=== PATIENT | female | born 1945 | race Caucasian/White ===

== ENCOUNTER 2016-08-26 14:17 | Inpatient (IN) | payer OTHER, MEDICARE ==
[~2016-08-26] VITALS: Ht 162.6 cm; Wt 154.2 kg
[~2016-08-26 14:17] MED LIST: APAP325 MG PO; ASPI-COR81 M1 PO; AUGMENTIN 875875 MG PO; CALAN PO; KLOR-CON20 MEQ PO; LASIX80 MG PO; LISINOPRIL10 MG PO; LISINOPRIL40 MG PO; MOTRIN 400MG (400 MG PO; PEDI-DRI 20Z60 GM TOP; PERCOCET 325 MG1 TA2 PO; SIMVASTATIN40 MG PO; TYLENOL #31 TAB PO; TYLENOL ARTHRI650 MG PO
--- NOTE | 2016-08-26 14:20 | NUR ---
BIBA FROM HOME FOR RIGHT HIP PAIN, BILATERAL LEG PAIN, WEEPING EDEMA FROM LLE, DECREASED ABILITY TO AMBULATE AROUND HOUSE. UPON ARRIVAL PT EXERTIONALLY SOB, DIFFICULTY TRANSFERRING FROM EMS STRETCHER TO ED STRETCHER BUT ABLE TO PERFORM TASK WITH ASSIST X2. PT ON 3LNC AT BASELINE FOR COPD
--- NOTE | 2016-08-26 14:21 | ED UPPER/LOWER EXTREMITY COMPL ---
History of Present Illness General Chief Complaint: Lower Extremity Problems Stated Complaint: BIBA FOR R HIP/KNEE/THIGH PAIN CHRONIC Source: patient, old records, EMS Exam Limitations: no limitations Vital Signs & Intake/Output Vital Signs & Intake/Output Vital Signs Date Time Temp Pulse Resp B/P Pulse O2 O2 Flow FiO2 Ox Delivery Rate 08/26 1818 97.2 61 18 125/65 98 Nasal 3.0L Cannula 08/26 1530 16 95 Nasal 3.0L Cannula 08/26 1430 94 Nasal 3.0L Cannula 08/26 1430 98.2 66 16 118/56 94 Nasal 3.0L Cannula Allergies Coded Allergies: Sulfa (Sulfonamide Antibiotics) (UNKNOWN 08/26/16) Reconcile Medications Acetaminophen With Codeine (Acetaminophen-Cod #3 Tablet) 300 MG-30 MG TABLET 1 TAB PO 0400 PAIN (Reported) Acetaminophen With Codeine (Acetaminophen-Cod #3 Tablet) 300 MG-30 MG TABLET 0.5 TAB PO BID PAIN (Reported) Aspirin (Aspi-Cor) 81 MG CTB 1 TAB PO Q72 HEART HEALTH (Reported) Diclofenac Sodium 75 MG TABLET.DR 1 TAB PO BID PAIN (Reported) Furosemide (Lasix) 80 MG TABLET 1 TAB PO DAILY CHF (Reported) Ibuprofen 400 MG TABLET 2 TAB PO DAILY PAIN (Reported) Lisinopril 10 MG TABLET 10 MG PO BID HYPERTENSION Morphine Sulfate 15 MG TABLET 1 TAB PO BIDP PRN PAIN (Reported) Potassium Chloride (Klor-Con) 20 MEQ PDS 1 TAB PO Q48 SUPPLEMENT (Reported) Simvastatin 40 MG TABLET 1 TAB PO QPM CHOLESTEROL (Reported) Verapamil (Calan 80 MG Tablet) 80 MG TABLET 1 TAB PO TID BLOOD PRESSURE ( Reported) Triage Nurses Notes Reviewed? yes Onset: Gradual Duration: week(s):, constant, getting worse Timing: recent history Severity: moderate Severity Numbers: 8 Pain/Injury Location: Right: Hip. Bilateral: Leg. Method of Injury: unknown Modifying Factors: Worsens With: movement. Associated Symptoms: none HPI: 71 year old female with history of hypertension, hyperlipidemia, CHF, bilateral knee arthritis, depression, obstructive sleep apnea morbidly obese presents brought in by ambulance complaining of right hip and right leg chronic aching throbbing pain that has been getting progressively worse over the past several weeks having difficulty with ambulation around her house. The patient has been seeming home physical therapy visiting nursing care without improvement and the patient has had near falls over the past 1 week. She is on several narcotic pain medication which she's been on without improvement in her symptoms. She states that her legs are chronically swollen, and weeping. She denies any rashes to her skin no fever no chills. She denies any chest pain shortness of breath dizziness lightheadedness at this time. No bowel pain nausea vomiting or diarrhea Family States that patient is unable to care for self anymore longer secondary to her pain (MINI MILLAN) Past History Travel History Traveled to [place] past 21 day No Medical History Any Pertinent Medical History? see below for history Cardiovascular: CHF, hypertension, hyperlipidemia Musculoskeletal: chronic leg pain Other Medical Hx: Cellulitis History of MRSA: No History of VRE: No History of CDIFF: No Pneumonia Vaccine: 02/19/14 Influenza Vaccine: 06/10/14 Surgical History Surgical History: non-contributory Psychosocial History Who do you live with Patient/Self Services at Home Nursing What is your primary language Stateless Family History Family History, If Any: BROTHER FH: diabetes mellitus MOTHER FH: diabetes mellitus Hx Contributory? No (MINI MILLAN) Review of Systems Review of Systems Constitutional: Reports: see HPI. All Other Systems: Reviewed and Negative Comments Review of systems: See HPI, All other systems negative. Constitutional, no chills no fever, no malaise HEENT: No visual changes no sore throat no congestion, no ear pain Cardiovascular: No chest pain , no palpitation Skin, no jaundice no rashes, no change in skin Respiratory: No dyspnea no cough no sputum GI: No nausea no vomiting, no diarrhea, no bloating/constipation : No dysuria No hematuria, no frequency, Muscle skeletal: see hpi Neurologic: No numbness no confusion, no headache Psych: No stress. Heme/endocrine: No bruising no bleeding Immunology: No lymphadenopathy (MINI MILLAN) Physical Exam Physical Exam General Appearance: well developed/nourished, alert Comments: Well-developed well-nourished person in no acute distress HEENT: Normal EENT exam; PERRL, EOMI, HEAD is atraumatic. moist mucous membranes. Neck: Supple,, normal range of motion without pain or tenderness Back: Nontender, no CVA tenderness. Full range of motion Cardiovascular: Regular rate and rhythms no murmurs rubs Respiratory: No respiratory distress. Patient speaking in full complete sentences. Breath sounds clear to auscultation bilaterally: NO W/R/R Abdomen: Soft, nontender nondistended Normal bowel sounds. No rebound/guarding upper Extremity: No edema, full range of motion of extremities, normal and equal pulses bilaterally, 5 out of 5 strength noted to bilateral upper extremities Hip/Pelvis: Atraumatic/Stable. FROM. No pain with pelvic compression Knee: Atraumatic/stable. FROM. No joint swelling, no effusion. No laxity. Negative josette/anterior drawer test. No pain with ROM Leg: Atraumatic. Bilateral pitting edema, legs are hyperpigmented, 5 out of 5 strength in the lower extremity, normal dorsiflexion of great toe bilaterally, gross sensation is intact Ankle/Foot: Atraumatic/stable. Skin intact. FROM. No swelling, no effusion. No laxity on exam Pulses: Normal/equal DP/PT pulses bilaterally. Brisk cap refill Neuro: Alert oriented x3, motor sensory normal, cranial nerves II through XII grossly intact. There were no obvious focal neurologic abnormalities. Skin: No appreciable rash on exposed skin, skin is warm and dry. Psych: Mood and affect is normal, memory and judgment is normal. (STACEY CASTILLO,MINI) Progress Differential Diagnosis: arterial insufficiency, cellulitis, CHF, compartment syndrome, contusion, DVT, fracture, gout, sprain, tendon injury Plan of Care: Orders Procedure Date/time Status Heart Healthy Diet 08/27 B Active CBC WITHOUT DIFFERENTIAL 08/27 0600 Active BASIC ELECTROLYTES PLUS BUN&CR 08/27 0600 Active Regular Diet 08/26 D Complete PT Evaluate & Treat 08/26 1808 Active Pathway - chart 08/26 1808 Active House Staff 08/26 1808 Active SOCIAL WORK CONSULT 08/26 1808 Active CASE MANAGEMENT CONSULT 08/26 1808 Active Code Status 08/26 1801 Active Patient Data 08/26 1707 Active Saline Lock 08/26 1641 Active Misc Message 08/26 1641 Active ED Holding Orders 08/26 1641 Active Vital Signs 08/26 1641 Active Activity/Ambulation 08/26 1641 Active Code Status 08/26 1641 Complete Admit to inpatient 08/26 1638 Active Intake & Output 08/26 1605 Active B-TYPE NATRIURETIC PEP (BNP) 08/26 1543 Complete COMPREHENSIVE METABOLIC PANEL 08/26 1504 Complete CBC WITHOUT DIFFERENTIAL 08/26 1504 Complete VTE Mechanical Prophylaxis 08/26 UNK Active Current Medications Sig/Dior Start time Last Medication Dose Stop Time Status Admin Heparin Sodium 5,000 UNIT Q8 08/26 2200 AC (Porcine) Laboratory Tests 08/26/16 1543: Anion Gap 13, Estimated GFR 34 L, BUN/Creatinine Ratio 30.7 H, Glucose 93, Calcium 9.2, Total Bilirubin 0.5, AST 14, ALT 17, Alkaline Phosphatase 150 H, Dle-P-Orqabjsifrt Pept 879 H, Total Protein 7.4, Albumin 4.1, Globulin 3.3, Albumin/Globulin Ratio 1.2, CBC w Diff NO MAN DIFF REQ, RBC 5.07, MCV 64.5 L, MCH 19.8 L, RDW 21.8 H, MPV 8.6, Gran % 78.5 H, Lymphocytes % 11.2 L, Monocytes % 8.0, Eosinophils % 1.8, Basophils % 0.5, Absolute Granulocytes 8.3 H, Absolute Lymphocytes 1.2, Absolute Monocytes 0.8 H, Absolute Eosinophils 0.2 , Absolute Basophils 0.1, PUBS MCHC 30.7 L 08/26/16 1505: Tea-V-Qjzipgfdsuc Pept Cancelled Labs ordered old records reviewed case discussed with Dr. Alejandre patient is declining anything for pain at this time (STACEY CASTILLO,MINI) Diagnostic Imaging: Viewed by Me: Radiology Read. Discussed w/RAD: Radiology Read. Radiology Impression: PATIENT: NICOLAS HERNANDEZ PRESENT AGE: 71 PATIENT ACCOUNT NO: [id number] : 47 LOCATION: [facility] ORDERING PHYSICIAN: MINI CASTILLO SERVICE DATE: 08/26/16 EXAM TYPE: RAD - XRY- AP PELVIS; XRY-KNEE COMPLETE RIGHT EXAMINATION: AP PELVIS, RIGHT KNEE SERIES CLINICAL INFORMATION: Right hip pain, right knee pain COMPARISON: None. AP pelvis: 2 frontal radiographs of the pelvis are provided for review. Images are significantly limited by patient body habitus. The ilioischial and iliopectineal lines appear maintained. There is severe joint space narrowing of the right hip with associated subchondral sclerosis. There is moderate to severe narrowing of the joint space of left hip with associated sclerosis of acetabular roof. There is no definite fracture. A significant amount of stool proximal over the sacrum completely obscuring evaluation. The sacroiliac joints appear grossly symmetric. Degenerative changes are noted of the lower lumbar spine, partially imaged. Right knee: 4 views of the right knee are provided for review, 5 images. There is significant narrowing of the medial compartment with subchondral sclerosis and marginal osteophytes present. There is mild narrowing of the lateral compartment of the knee with marginal osteophytes noted prominently along the lateral tibial plateau. Unfortunately, the distal femur is partially obscured on the lateral radiograph. The presence of an effusion cannot be assessed. There are prominent superior and inferior patellar enthesophytes. There is no definite fracture or subluxation. IMPRESSION: 1. Significantly limited evaluation secondary to patient body habitus. 2. Severe right hip osteoarthritis. 3. Moderately severe left hip osteoarthritis. 4. No definite fracture identified on the pelvic radiographs within the limitation of the examination which is significant. 5. Severe osteoarthritis involving the medial compartment of the right knee. 6. Mild osteoarthritic changes involving the lateral compartment of the right knee. 7. Moderate osteoarthritis involving the patellofemoral compartment. The presence of effusion cannot be assessed on these films. DICTATED BY: FRANCY MORSE MD DATE/TIME DICTATED:08/26/161699 DRESSMAKER OR TAILOR :JOHNNA DATE/TIME TRANSCRIBED:08/26/161699 CONFIDENTIAL, DO NOT COPY WITHOUT APPROPRIATE AUTHORIZATION. <Electronically signed in Other Vendor System> SIGNED BY: FRANCY MORSE MD 08/26/161708 (MINI MILLAN) Departure Departure Time of Disposition: 1638 Disposition: STILL A PATIENT Condition: Stable Clinical Impression Primary Impression: Intractable pain Secondary Impressions: Chronic leg pain, Gait instability Referrals: Anai MARSH MD (PCP/Family) Departure Forms: Customer Survey General Discharge Information Admission Note Spoke With: JERRY CHOE,BETH Documentation of Exam: Documentation of any treatments & extenuating circumstances including Concerns Regarding Discharge (functional status, medication knowledge or non-compliance, living conditions, etc.) that warrant an admission rather than observation: WILL REQUIRE PT CONSULT, TREND LABS, MEDICATION ADJUSTMENT OF PAIN MEDICAITONS, PATIENT UNABLE TO CARE FOR SELF AT HOME, UNABLE TO AMBULATE AT BASELINE HERE IN ER SAFELY- PT IS A FALL RISK. PREMATURE DISCHARGE WOULD BE MEDICALLY HARMFUL (MINI MILLAN) PA/SHOEMAKER CUSTOM Co-Sign Statement Statement: ED Attending supervision documentation- [X] I saw and evaluated the patient. I have also reviewed all the pertinent lab results and diagnostic results. I agree with the findings and the plan of care as documented in the PA's/SHOEMAKER CUSTOM's documentation. [X] I have reviewed the ED Record and agree with the PA's/SHOEMAKER CUSTOM's documentation. [] Additions or exceptions (if any) to the PAs/SHOEMAKER CUSTOM's note and plan are summarized below: [] (DANYELL CHOE,SOURAV Singh)
[2016-08-26] MEDS ORDERED: DICLOFENAC SODI75 M2 PO (14:41)
[2016-08-26] MEDS ORDERED: MORPHINE SULFAT15 M4 PO (14:42)
[2016-08-26] MEDS ORDERED: ACETAMINOPHEN-1 EAC3 PO ×2 (14:44→14:45)
--- NOTE | 2016-08-26 15:41 | NUR ---
PT AMBULATORY TO AND FROM RECLINING CHAIR TO RM 10 BATHROOM WITH ROLLING WALKER. PT AMBULATES SLOW AND IS DIFFICULT TO GET OUT OF CHAIR BUT IS ABLE TO INDEPENDENTLY
--- NOTE | 2016-08-26 15:46 | NUR ---
BLOOD DRAWN AND SENT TO LAB. LAV,SST,BLUE
[2016-08-26 15:51] LABS: ABSOLUTE BASOPHIL COUNT 0.1 /CUMM (0.0-0.2); ABSOLUTE EOSINOPHIL COUNT 0.2 /CUMM (0.0-0.7); ABSOLUTE GRANULOCYTE CT 8.3 /CUMM (1.4-6.5); ABSOLUTE LYMPH COUNT 1.2 /CUMM (1.2-3.4); ABSOLUTE MONOCYTE COUNT 0.8 /CUMM (0.10-0.60); BASOPHIL % 0.5 % (0.0-2.0); EOSINOPHIL % 1.8 % (0-5); GRANULOCYTE % 78.5 % (42.2-75.2); HEMATOCRIT 32.7 % (37-47); MEAN CORPUSCULAR HGB 19.8 PG (27.0-31.0); MEAN CORPUSCULAR HGB CONC 30.7 G/DL (33.0-37.0); PLATELET COUNT 227 /CUMM (130-400); RBC DISTRIBUTION WIDTH 21.8 % (11.5-14.5); RED BLOOD CELL CT 5.07 /CUMM (4.20-5.40); WHITE BLOOD CELL COUNT 10.6 /CUMM (4.8-10.8)
[2016-08-26 16:23] LABS: MEAN CORPUSCULAR VOLUME 64.5 FL (81.0-99.0); MEAN PLATELET VOLUME 8.6 FL (7.4-10.4)
--- NOTE | 2016-08-26 16:33 | NUR ---
PT RETURN FROM RADIOLOGY
--- NOTE | 2016-08-26 16:36 | NUR ---
JONATHAN IBARRA AT BEDSIDE TO DISCUSS POC. ADMISSION ANTICIPATED
--- NOTE | 2016-08-26 16:53 | NUR ---
PT AMBULATED TO BATHROOM WITH MINIMAL ASSISTANCE
--- NOTE | 2016-08-26 17:09 | RADIOLOGY REPORT ---
EXAMINATION: AP PELVIS, RIGHT KNEE SERIES CLINICAL INFORMATION: Right hip pain, right knee pain COMPARISON: None. AP pelvis: 2 frontal radiographs of the pelvis are provided for review. Images are significantly limited by patient body habitus. The ilioischial and iliopectineal lines appear maintained. There is severe joint space narrowing of the right hip with associated subchondral sclerosis. There is moderate to severe narrowing of the joint space of left hip with associated sclerosis of acetabular roof. There is no definite fracture. A significant amount of stool proximal over the sacrum completely obscuring evaluation. The sacroiliac joints appear grossly symmetric. Degenerative changes are noted of the lower lumbar spine, partially imaged. Right knee: 4 views of the right knee are provided for review, 5 images. There is significant narrowing of the medial compartment with subchondral sclerosis and marginal osteophytes present. There is mild narrowing of the lateral compartment of the knee with marginal osteophytes noted prominently along the lateral tibial plateau. Unfortunately, the distal femur is partially obscured on the lateral radiograph. The presence of an effusion cannot be assessed. There are prominent superior and inferior patellar enthesophytes. There is no definite fracture or subluxation. IMPRESSION: 1. Significantly limited evaluation secondary to patient body habitus. 2. Severe right hip osteoarthritis. 3. Moderately severe left hip osteoarthritis. 4. No definite fracture identified on the pelvic radiographs within the limitation of the examination which is significant. 5. Severe osteoarthritis involving the medial compartment of the right knee. 6. Mild osteoarthritic changes involving the lateral compartment of the right knee. 7. Moderate osteoarthritis involving the patellofemoral compartment. The presence of effusion cannot be assessed on these films.
--- NOTE | 2016-08-26 17:30 | NUR ---
PT STATES SHE DOES NOT FEEL LIKE SHE IS ABLE TO GET UP AND AMBULATE AT THIS TIME DUE TO PAIN AND LOWER EXTREMITY WEAKNESS
--- NOTE | 2016-08-26 18:20 | NUR ---
PT GOING TO ROOM 209-1.
--- NOTE | 2016-08-26 18:27 | History & Physical ---
AYANA ROJO 08/26/16 1827: General Information and HPI MD Statement: I have seen and personally examined NICOLAS HERNANDEZ and documented this H&P. The patient is a 71 year old F who presented with a patient stated chief complaint of right hip knee and thigh pain. Source of Information: patient History of Present Illness: Ms Hernandez is a 71-year-old woman who was known to be in her usual state of health until a few weeks ago. She has a past medical history of CHF, bilateral knee osteoarthritis, obstructive sleep apnea, COPD (3 L home oxygen), hypertension. She was brought to [facility] with a chief concern of worsening right hip knee and thigh pain in the last few days. As per the patient, she has had chronic pain in her right knee and thigh for which she has been on pain medications (prescribed at pain clinic) and home physical therapy. Pain, worsening in the last few weeks, severity 10/10, with no radiation, located in right hip knee and thigh, limitation in activity, unable to climb stairs, relieved upon taking pain medications at a higher dose only. Also is concerned about increasing leg swelling bilaterally, despite being on a diuretic; no associated redness, tenderness, drainage or open wounds. Does not report any change in functional status (shortness of breath while walking), doing daily chores. No fever, cough, orthopnea, chest pain, palpitations reported. No melena or bleeding per rectum. Sees Dr Marsh ( PCP ), Ed Bhandari MD (urinalysis technician), Dr. Baptiste ( waitstaff captain). Former smoker smoked approximately 50 pack years, quit more than 20 years ago. He reports limited activity, sleeps on a recliner. Allergies/Medications Allergies: Coded Allergies: Sulfa (Sulfonamide Antibiotics) (UNKNOWN 08/26/16) Home Med list Acetaminophen With Codeine (Acetaminophen-Cod #3 Tablet) 300 MG-30 MG TABLET 1 TAB PO 0400 PAIN (Reported) Acetaminophen With Codeine (Acetaminophen-Cod #3 Tablet) 300 MG-30 MG TABLET 0.5 TAB PO BID PAIN (Reported) Aspirin (Aspi-Cor) 81 MG CTB 1 TAB PO Q72 HEART HEALTH (Reported) Diclofenac Sodium 75 MG TABLET. 1 TAB PO BID PAIN (Reported) Furosemide (Lasix) 80 MG TABLET 1 TAB PO DAILY CHF (Reported) Ibuprofen 400 MG TABLET 2 TAB PO DAILY PAIN (Reported) Lisinopril 10 MG TABLET 10 MG PO BID HYPERTENSION Morphine Sulfate 15 MG TABLET 1 TAB PO BIDP PRN PAIN (Reported) Potassium Chloride (Klor-Con) 20 MEQ PDS 1 TAB PO Q48 SUPPLEMENT (Reported) Simvastatin 40 MG TABLET 1 TAB PO QPM CHOLESTEROL (Reported) Verapamil (Calan 80 MG Tablet) 80 MG TABLET 1 TAB PO TID BLOOD PRESSURE ( Reported) Past History Travel History Traveled to [place] past 21 day No Medical History Neurological: NONE EENT: NONE Cardiovascular: CHF, hypertension, hyperlipidemia Respiratory: emphysema Gastrointestinal: NONE Hepatic: NONE Renal: NONE Musculoskeletal: chronic leg pain Psychiatric: NONE Endocrine: NONE Blood Disorders: NONE Cancer(s): NONE Other Medical Hx: Cellulitis History of MRSA: No History of VRE: No History of CDIFF: No Pneumonia Vaccine: 02/19/14 Influenza Vaccine: 06/10/14 Surgical History Surgical History: non-contributory Past Family/Social History Family History Relations & Conditions if any BROTHER FH: diabetes mellitus MOTHER FH: diabetes mellitus Psychosocial History Services at Home: Nursing ETOH Use: denies use Illicit Drug Use: denies illicit drug use Review of Systems Review of Systems Constitutional: Denies: chills, fever, malaise. EENTM: Denies: visual changes. Cardiovascular: Denies: chest pain, edema. Respiratory: Denies: cough, orthopnea, short of breath. GI: Denies: nausea. Genitourinary: Denies: dysuria. Musculoskeletal: Denies: joint pain. Skin: Denies: change in skin color. Neurological/Psychological: Denies: anxiety, headache. Exam & Diagnostic Data Last 24 Hrs of Vital Signs/I&O Vital Signs Date Time Temp Pulse Resp B/P Pulse O2 O2 Flow FiO2 Ox Delivery Rate 08/26 2235 76 172/82 08/26 2109 98.2 76 20 172/82 91 08/26 2037 68 20 136/64 95 Nasal 3.0L Cannula 08/26 1818 97.2 61 18 125/65 98 Nasal 3.0L Cannula 08/26 1530 16 95 Nasal 3.0L Cannula 08/26 1430 94 Nasal 3.0L Cannula 08/26 1430 98.2 66 16 118/56 94 Nasal 3.0L Cannula Intake & Output 08/26 1600 01/21 0800 08/26 0000 Intake Total Output Total Balance Patient 324 lb Weight Physical Exam General Appearance Alert, Oriented X3, Cooperative, No Acute Distress Skin No Breakdown HEENT PERRLA, EOMI Neck No JVD, No thryomegaly Lymphatic Cervical nl Cardiovascular Regular Rate, Normal S1, Normal S2 Lungs Normal Air Movement Abdomen Normal Bowel Sounds, Soft, No Tenderness Neurological Normal Speech, Strength at 5/5 X4 Ext, Normal Tone, Sensation Intact, Cranial Nerves 3-12 NL, Reflexes 2+ Extremities No Cyanosis, tenderness and edema bilateral lower extremities extending from ankle up to the dav[place]son area. Slightly erythematous, but no tenderness or any signs of infection. Vascular Pulses Symmetrical Assessment/Plan Assessment: She is an older lady with a past medical history of bilateral knee arthritis, CHF, COPD is being evaluated for worsening right hip, knee and thigh pain. At the time of admission, temperature 98.2, pulse rate 76, respiratory rate 20, blood pressure 172/82, pulse ox 91-95 on 3 L oxygen. Lab findings indicated WBC 10.6, hemoglobin 10.1 (baseline 10.7), hematocrit 32.7, MCV 64.5 (very low), platelets 227. Normal electrolytes sodium 142, potassium 4.3, bicarbonate 27, BUN 46, serum creatinine 1.5 (baseline 1.2- likely due to chronic kidney disease or increased muscle mass). Alkaline phosphatase 150 (slightly elevated), proBNP 879, radiological findings indicated right hip osteoarthritis, osteoarthritis of right knee. Admission diagnosis: #1 osteoarthritis Below is the problem list and plan: #1 right, hip, knee pain-likely due to osteoarthritis. Pain management with by mouth hydromorphone, MSIR and Tylenol. Continue to monitor kidney function and when allowed, start an anti-inflammatory. Warm or cool compress, alternate pain control. Physical therapy evaluation. Occupational therapy evaluation. Leg elevation for bilateral leg swellings. #2 anemia-likely anemia of chronic disease. Low MCV. Check iron, ferritin, TIBC. Does not have any history of thalassemia. Check guaiac. #2 hypertension-continue to monitor blood pressure while in the hospital. Continue lisinopril and verapamil. #3 history of CHF-continue 80 mg by mouth daily. #4 DVT prophylaxis-heparin subcutaneous. As Ranked By This Provider Problem List: 1. Chronic leg pain 2. Intractable pain Core Measures/Miscellaneous Acute Coronary Syndrome ACS Diagnosis: No Cerebrovascular Accident CVA/TIA Diagnosis: No Congestive Heart Failure CHF Diagnosis: No Venous Thromboembolism VTE Risk Factors: Acute medical illness, Age > 40 VTE Prophylaxis Ordered Inpt: Pharm- Heparin No Mech VTE prophylaxis d/t: No contraindications No VTE Pharm Prophylaxis d/t: No contraindications VTE Diagnosis: No VTE Type: NONE VTE Confirmed by (Test): NONE Severe Sepsis Severe Sepsis Present: No Septic Shock Septic Shock Present: No Miscellaneous Documentation Attending Case Discussed With: EBENEZER PETTY MD Primary Care Physician: Anai MARSH MD Patient sees these Specialists Dr. Baptiste Level of Patient Care: General Medicine EBENEZER PETTY 08/26/16 2356: Attending MD Review Statement Attending Statement Attending MD Statement: examined this patient, discuss w/resident/PA/NATUROPATHIC ONCOLOGY PROVIDER, agreed w/resident/PA/NATUROPATHIC ONCOLOGY PROVIDER, reviewed EMR data (avail), reviewed images, amended to note Attending Assessment/Plan: CC : right Knee and hip pain PMH: HTN, HLD, HFpEF, COPD on 3 L O2, morbid obesity, OA, ?DANGELO Patient has chronic pain bilateral hips, knees, more in right side compared to the left. Patient came with acute worsening of pain in left knee and hip, unable to ambulate, unsteady gait. According to family, patient is unable to take care of herself because of the pain. Vitals: Afebrile, pulse 66, RR 20, blood pressure in acceptable range, saturating 95% on 3 L. On exam: A O 3, no acute distress, morbidly obese, neck supple, no lymphadenopathy, mucosa moist CVS: S1-S2, RRR. RS: Markedly decreased air entry bilaterally, no obvious wheezing. Abdomen: Obese, NT, ND, bowel sounds present, no obvious rashes. No focal neurological deficit. Examination of joint is limited because patient is in pain and not cooperative Labs: Hemoglobin 10.1, MCV 64. BUN 46, creatinine 1.5, proBNP 879 otherwise BMP and LFT unremarkable. X-ray pelvis x-ray right knee: Significantly limited evaluation secondary to patient body habitus. Severe right hip osteoarthritis. Moderately severe left hip osteoarthritis. No definite fracture identified on the pelvic radiographs within the limitation of the examination which is significant. Severe osteoarthritis involving the medial compartment of the right knee. Mild osteoarthritic changes involving the lateral compartment of the right knee. Moderate osteoarthritis involving the patellofemoral compartment. The presence of effusion cannot be assessed on these films. A&P: #1 intractable pain secondary to severe osteoarthritis of right hip and knee joint: Patient is currently on diclofenac, ibuprofen, morphine at home. Given her CKD, D/c either ibuprofen or diclofenac. Adequate pain control with PO hydromorphone for severe pain, hydrocodone or MS Contin for moderate pain and Tylenol for mild pain. OT PT evaluation for unsteady gait #2 patient has microcytic anemia which appears to be chronic, review of previous labs does not show any workup for anemia, patient denies any chronic blood loss. Patient has CKD which may be contributing, obtain iron studies, may require outpatient workup for anemia. #3 CKD : Creatinine is 1.5, previous value for comparison 1.2 in 2015, given patient's chronic NSAID use, history of heart failure with by mouth Lasix use patient may be developing CKD. #4 HTN, HLD, HFpEF, COPD: Continue her home medications of lisinopril, simvastatin, verapamil, Lasix, when necessary nebulization, O2 by MN. #5 OT PT evaluation, assessment for short-term rehabilitation placement #6 hepatin for DVT prophylaxis MAX CHOE,[place] 08/27/16 0016: Resident Review Statement Resident Statement: examined this patient, discussed with chief of internal medicine, agreed with chief of internal medicine Other Findings: Ms Hernandez is a morbidly obese 71 YO F with a PMH COPD on 3L home O2, CHF, bilateral knee and hip osteoarthritis, obstructive sleep apnea not on CPAP, hypertension, hx of recurrenet cellulitis and chronic lymphedema of her bilateral LE who presents with pain in her hips, knee and thighs with increased difficulty ambulating around her home with her walker. Pain has been worsening in the past months, she is unable to care for herself due to the pain. She has home PT but had to stop getting PT because of her pain. She denies any recent falls, fever, cough, shortness of breath, N/V/D or abdominal pain. She says she has to sleep in a recliner due to her hip pain. She has not followed with the different consultants she sees because she is unable to go down the steps of her house to make it to her clinic appointments (she has upcoming appointments with her pulm-Dr. Bhandari and waitstaff captain-Dr. Baptiste). She requests to see a solutions sales consultant to trim her nails while in hospital. She endorses opiod-related constipation for which she takes colace and prune juice. Her pain medications are tyelenol with codeine, morphine po, diclofenac and ibuprofen. She expressed that she would only go to [facility] if she has to go to rehab at all. Assessment Intractable Pain from OA Plan Admit to She needs PT and STR placement Adequate pain Mgt-Tylenol/Morphine/Dilaudid Podiatry consult in am to trim her nails Hold Diclofenac and Ibuprofen; Can resume one of them on discharge but avoid discharge on both to minimize SE of NSAIDS Resume her impt home medications Continue O2 supplementation at her baseline rate as needed She takes Lisinopril 10mg BID-Please confirm this dose with her PCP/ [employer] Heart Healthy Diet DVT ppx with sq heparin DNR/DNI
--- NOTE | 2016-08-26 18:54 | NUR ---
PT REFUSING IV AT THIS TIME. STATES SHE IS VERY UNHAPPY THAT SHE IS NOT IN A PRIVATE ROOM. "THIS IS GOING TO BE A PROBLEM."
--- NOTE | 2016-08-26 20:08 | NUR ---
PT GOING TO ROOM 203.
[2016-08-26 21:10] VITALS: BP 172/82
--- NOTE | 2016-08-26 22:00 | NUR ---
RECEIVED PT FROM ED THIS PM. PT ANXIOUS UPON ARRIVAL WITH INCREASED BLOOD PRESSURE, ALERT AND ORIENTED TIMES 4. VSS, AFEBRILE. ASSISTED TO LILIBETH CHAIR. PT REFUSES BED. RA, LUNG SOUNDS CLEAR. ABDOMEN SOFT, BILAT LOWER EXTREMITY EDEMA LEFT GREATER THAN RIGHT. BILAT LOWER EXTREMITIES SCALEY, DRY. REFUSED ELEVATION OF LEGS. REFUSED IV ACCESS. PAIN 7/10, GOOD EFFECT WITH PO DILAUDID. NO HISTORY OF FALLS, ABLE TO STAND WITH ROLLING WALKER. ASSIT OF ONE TO BSC. ORIENED TO 2NB, CALL RUSHING WITHIN REACH
[2016-08-26 23:53] VITALS: BP 134/64
--- NOTE | 2016-08-26 23:58 | Admission Certification ---
Admission Certification Certification Statement - As attending physician, I certify that at the time of - admission, based on clinical presentation, severity of - symptoms, need for further diagnostic testing and - therapeutic interventions, and risk of adverse outcomes - without in-hospital treatment, in my clinical assessment, - this patient requires an acute hospital stay for a minimum - of two nights or longer. I have also considered psychsocial - factors such as support system, advanced age, financial - issues, cognitive issues, and failed out-patient treatments, - past re-admission history, safety of patient, and lack of - compliance as applicable. Specific rationale supporting this admission is: Intractable pain, gait instability
--- NOTE | 2016-08-27 06:47 | PN- Housestaff ---
AYANA ROJO 08/27/16 0647: Subjective Follow-up For: 1.right hip pain Subjective: Pt was comfortable this am. She did not have any SOB, chest pain. Pain is adequately controlled with current regimen. Review of Systems Constitutional: Reports: see HPI. Objective Last 24 Hrs of Vital Signs/I&O Vital Signs Date Time Temp Pulse Resp B/P Pulse O2 O2 Flow FiO2 Ox Delivery Rate 08/26 2353 98.3 62 19 134/64 97 Nasal 3.0L Cannula 08/26 2235 76 172/82 08/26 2110 98.2 76 20 172/82 91 08/26 2037 68 20 136/64 95 Nasal 3.0L Cannula 08/26 1818 97.2 61 18 125/65 98 Nasal 3.0L Cannula 08/26 1530 16 95 Nasal 3.0L Cannula 08/26 1430 94 Nasal 3.0L Cannula 08/26 1430 98.2 66 16 118/56 94 Nasal 3.0L Cannula Intake & Output 08/27 0800 08/27 0000 08/26 1600 Intake Total 300 Output Total 700 Balance -400 Intake, Oral 300 Output, Urine 700 Patient 340 lb 324 lb Weight Physical Exam General Appearance: No Acute Distress Other Physical Findings: General Exam: AAOx3, No acute distress, Skin: No rashes, no breakdown HEENT: PERRLA, EOMI Neck: Supple, No JVD No cervical lymphadenopathy CVS: Reg Rate, Normal S1,S2, No MGR Resp: Normal air entry, no ronchi/rales Abdomen: Soft, no tenderness, Normal Bowel Sounds, folry catheter in place. good urine output Neuro: Normal Speech, Strength 5/5 b/l x 4 extremities, Sensation intact, CN III -XII NL, Reflexes 2+ Extremities: No cyanosis, pedal edema, tenderness in hip joint. Current Medications: Current Medications Sig/Dior Start time Last Medication Dose Route Stop Time Status Admin Acetaminophen 650 MG Q4P PRN 08/26 2044 AC PO Aspirin 81 MG DAILY 08/27 1000 AC PO Atorvastatin Calcium 20 MG 1700 08/27 1700 AC PO Furosemide 80 MG DAILY 08/27 1000 AC PO Heparin Sodium 5,000 UNIT Q8 08/260 AC 08/27 (Porcine) SC 0623 Hydromorphone HCl 2 MG Q4P PRN 08/26 2044 AC 08/27 PO 0625 Hydromorphone HCl 0 .STK-MED ONE 08/26 1755 DC PO Hydromorphone HCl 2 MG ONCE ONE 08/26 1645 DC 08/26 PO 08/26 1646 1800 Lisinopril 10 MG BID 08/26 2199 08/26 PO 2235 Morphine Sulfate 15 MG BID PRN 08/26 2045 08/27 PO 0120 Patient Medication 1 UNIT ONE NR 08/26 2100 HI Teaching ED 08/26 213 Patient Medication 1 UNIT ONE NR 08/26 2100 [facility] ED 08/26 213 Patient Medication 1 UNIT ONE NR 08/26 2100 [facility] ED 08/26 213 Patient Medication 1 UNIT ONE NR 08/26 2100 [facility] ED 08/26 213 Patient Medication 1 UNIT ONE NR 08/26 1830 [facility] ED 08/26 1900 Verapamil HCl 80 MG TID 08/26 2199 08/26 PO 2235 Last 24 Hrs of Lab/Refugio Results Last 24 Hrs of Labs/Mics: Laboratory Tests 08/26/16 1543: Anion Gap 13, Estimated GFR 34 L, BUN/Creatinine Ratio 30.7 H, Glucose 93, Calcium 9.2, Iron 24 L, TIBC 467, Ferritin 12.5, Total Bilirubin 0.5, AST 14, ALT 17, Alkaline Phosphatase 150 H, Fih-U-Nzxywncanwt Pept 879 H, Total Protein 7.4, Albumin 4.1, Globulin 3.3, Albumin/Globulin Ratio 1.2, CBC w Diff NO MAN DIFF REQ, RBC 5.07, MCV 64.5 L, MCH 19.8 L, RDW 21.8 H, MPV 8.6, Gran % 78.5 H, Lymphocytes % 11.2 L, Monocytes % 8.0, Eosinophils % 1.8, Basophils % 0.5, Absolute Granulocytes 8.3 H, Absolute Lymphocytes 1.2, Absolute Monocytes 0.8 H, Absolute Eosinophils 0.2, Absolute Basophils 0.1, PUBS MCHC 30.7 L 08/26/16 1505: Agu-C-Whesqguacha Pept Cancelled Assessment/Plan Assessment: Ms Yanez is a past medical history of CHF, bilateral knee osteoarthritis, obstructive sleep apnea, COPD (3 L home oxygen), hypertension who was brought to [facility] for management of worsening right hip knee and thigh pain in the last few days before admission. At the time of admission, temperature 98.2, pulse rate 76, respiratory rate 20, blood pressure 172/82, pulse ox 91-95 on 3 L oxygen. Lab findings indicated WBC 10.6, hemoglobin 10.1 (baseline 10.7), hematocrit 32.7, MCV 64.5 (very low), platelets 227. Normal electrolytes sodium 142, potassium 4.3, bicarbonate 27, BUN 46, serum creatinine 1.5 (baseline 1.2- likely due to chronic kidney disease or increased muscle mass). Alkaline phosphatase 150 (slightly elevated), proBNP 879, radiological findings indicated right hip osteoarthritis, osteoarthritis of right knee. Admission diagnosis: #1 osteoarthritis Below is the problem list and plan: #1 right, hip, knee pain-likely due to osteoarthritis. Pain management with by mouth hydromorphone, MSIR and Tylenol. Avoid NSAIDs till kidney function normalizes. Start celecoxib instead. Warm or cool compress, alternate pain control. Physical therapy evaluation. Occupational therapy evaluation. Leg elevation for bilateral leg swellings. #2 anemia-likely anemia of chronic disease. Low MCV. Check iron, ferritin, TIBC. Does not have any history of thalassemia. Check guaiac. #2 hypertension-continue to monitor blood pressure while in the hospital. Continue lisinopril and verapamil. #3 history of CHF-continue lasix 80 mg by mouth daily. #4 DVT prophylaxis-heparin subcutaneous. Problem List: 1. Chronic leg pain 2. Intractable pain Pain Ratin Pain Location: left hip, thigh Pain Goal: Pain 4 or less Pain Plan: msir tylenol Tomorrow's Labs & Rationales: cbc- monitor hb bep- check renal function [facility] 08/27/16 1150: Attending MD Review Statement Attending Statement Attending MD Statement: examined this patient, discuss w/resident/PA/VINYL TOP INSTALLER, agreed w/resident/PA/VINYL TOP INSTALLER, reviewed EMR data (avail), reviewed images Attending Assessment/Plan: 71-year-old morbidly obese female with past medical history significant for hypertension, hyperlipidemia, heart failure, COPD on 3 L of home oxygen, osteoarthritis is being admitted on the floor last night with right knee and right pain. Patient has chronic and bilateral hips and is here for worsening pain in the left knee and hip. Patient was seen and examined while she was sitting in the chair and rates her pain as 7 out of 10. Patient currently is on Dilaudid 2 mg every 4 when necessary and morphine sulfate 15 mg twice a day when necessary. Please follow-up with the recommendations from pain management. Continue the rest of her home medications.
[2016-08-27 07:35] VITALS: BP 112/73
[2016-08-27 10:25] LABS: ABSOLUTE BASOPHIL COUNT 0 /CUMM (0.0-0.2); ABSOLUTE EOSINOPHIL COUNT 0.3 /CUMM (0.0-0.7); ABSOLUTE GRANULOCYTE CT 7.3 /CUMM (1.4-6.5); ABSOLUTE LYMPH COUNT 1.5 /CUMM (1.2-3.4); ABSOLUTE MONOCYTE COUNT 0.8 /CUMM (0.10-0.60); BASOPHIL % 0.5 % (0.0-2.0); EOSINOPHIL % 2.9 % (0-5); GRANULOCYTE % 73.2 % (42.2-75.2); HEMATOCRIT 30.6 % (37-47); MEAN CORPUSCULAR HGB 20.4 PG (27.0-31.0); MEAN CORPUSCULAR HGB CONC 31.5 G/DL (33.0-37.0); MEAN CORPUSCULAR VOLUME 64.7 FL (81.0-99.0); MEAN PLATELET VOLUME 9.1 FL (7.4-10.4); PLATELET COUNT 214 /CUMM (130-400); RBC DISTRIBUTION WIDTH 21.5 % (11.5-14.5); RED BLOOD CELL CT 4.74 /CUMM (4.20-5.40)
[2016-08-27 16:01] VITALS: BP 164/78
[2016-08-27 22:24] VITALS: BP 158/78
--- NOTE | 2016-08-28 07:15 | PN- Housestaff ---
AYANA ROJO 08/28/16 0715: Subjective Follow-up For: 1. pain in thigh Complaints: no complaints Subjective: Ms. Yanez was comfortable. She did not have any complaints. Pain was adequately controlled with current pain regimen. Vitals remained stable overnight. MAXIMUM TEMPERATURE 98.7. Review of Systems Constitutional: Reports: see HPI. Objective Last 24 Hrs of Vital Signs/I&O Vital Signs Date Time Temp Pulse Resp B/P Pulse O2 O2 Flow FiO2 Ox Delivery Rate 08/28 0000 Nasal 3.0L Cannula 08/274 98.9 65 20 158/78 95 Room Air 08/27 2132 65 158/78 08/27 1601 97.4 74 20 164/78 92 08/27 1600 96 Nasal 3.0L Cannula 08/27 0958 97.6 58 20 112/73 08/27 0800 95 Nasal 2.0L Cannula 08/27 0735 97.6 58 20 112/73 95 Nasal 3.0L Cannula Intake & Output 08/28 0800 08/28 0000 08/27 1600 Intake Total 600 480 Output Total 500 600 700 Balance -500 0 -220 Intake, Oral 600 480 Number 0 Bowel Movements Output, Urine 500 600 700 Physical Exam General Appearance: No Acute Distress Other Physical Findings: General Exam: AAOx3, No acute distress, Skin: No rashes, no breakdown HEENT: PERRLA, EOMI Neck: Supple, No JVD No cervical lymphadenopathy CVS: Reg Rate, Normal S1,S2, No MGR Resp: Normal air entry, no ronchi/rales Abdomen: Soft, No tenderness, Normal Bowel Sounds Neuro: Normal Speech, Strength 5/5 b/l x 4 extremities, Sensation intact, CN III -XII NL, Reflexes 2+ Extremities: No cyanosis, 2+ pedal edema, wounds serous discharge in the left dorsal surface of the left leg. Current Medications: Current Medications Sig/Dior Start time Last Medication Dose Route Stop Time Status Admin Acetaminophen 650 MG Q4P PRN 08/26 2044 AC PO Aspirin 81 MG DAILY 08/27 1000 AC 08/27 PO 1442 Atorvastatin Calcium 20 MG 1700 08/27 1700 AC 08/27 PO 1601 Diclofenac Sodium 75 MG BID 08/27 2200 AC 08/27 PO 2132 Furosemide 80 MG DAILY 08/27 1000 AC 08/27 PO 0948 Heparin Sodium 5,000 UNIT Q8 08/26 2199 AC 08/28 (Porcine) SC 0618 Hydromorphone HCl 2 MG Q4P PRN 08/26 PO 0613 Lisinopril 10 MG BID 08/26 2199 AC 08/27 PO 2131 Morphine Sulfate 15 MG BID PRN 08/26 2044 AC 08/27 PO 2000 Verapamil HCl 80 MG TID 08/26 PO 2131 Assessment/Plan Assessment: Ms Yanez is a past medical history of CHF, bilateral knee osteoarthritis, obstructive sleep apnea, COPD (3 L home oxygen), hypertension who was brought to [facility] for management of worsening right hip knee and thigh pain in the last few days before admission. Admission diagnosis: #1 osteoarthritis Below is the problem list and plan: #1 right, hip, knee pain-likely due to osteoarthritis. Pain management with by mouth hydromorphone, MSIR and Tylenol. Avoid NSAIDs till kidney function normalizes. Start celecoxib instead. Kidney function improving. Deferred the decision to orthopedics, and if any intervention is required at this time. Warm or cool compress, alternate pain control. Physical therapy evaluation recommends short-term rehabilitation. Occupational therapy evaluation. Leg elevation for bilateral leg swellings. #2 anemia-likely anemia of chronic disease. Low MCV. Normal hemoglobin, iron, TIBC, ferritin. Does not have any history of thalassemia. Peripheral smear to assess microcytosis. #2 hypertension-continue to monitor blood pressure while in the hospital. Continue lisinopril and verapamil. #3 history of CHF-continue lasix 80 mg by mouth daily. Lower extremity edema likely dependent. No cellulitis. #4 DVT prophylaxis-heparin subcutaneous. Problem List: 1. Chronic leg pain 2. Intractable pain Pain Ratin Pain Location: Right hip Pain Goal: Pain 4 or less Pain Plan: MSIR 50 mg by mouth twice a day when necessary Dilaudid 2 mg every 4 when necessary by mouth. Tomorrow's Labs & Rationales: BEP to monitor serum creatinine. Slightly elevated at the time of admission FRED JHAVERI MD 08/28/16 1120: Attending MD Review Statement Attending Statement Attending MD Statement: examined this patient, discuss w/resident/PA/NEUROLOGICAL SURGERY TEACHER, agreed w/resident/PA/NEUROLOGICAL SURGERY TEACHER, reviewed EMR data (avail) Attending Assessment/Plan: Continue current pain medications for severe bilateral hip and knee osteoarthritis. Orthopedic consult for possible intervention as patient is in severe pain when walking. Medical Office Representative consult for weight loss on discharge. Will require rehab bed.
[2016-08-28 08:26] VITALS: BP 125/78
--- NOTE | 2016-08-28 08:46 | Discharge Summary ---
Visit Information Visit Dates Admission Date: 08/26/16 Discharge Date: 08/30/16 Hospital Course Course Attending Physician: FRED JHAVERI MD Primary Care Physician: Anai MARSH MD Other Care Providers: Dr. Baptiste - cardiology Dr. Bhandari - pulmonology Consulting Request: Consulting Specialty: Orthopedics Consulting Physician: Dr. Max Reason for Consult: Severe osteoarthritis, evaluation for surgery Hospital Course: 71-year-old woman with pmh of diastolic CHF(EF 60%), HTN, osteoarthritis, obstructive sleep apnea, COPD (3 L home oxygen), morbid obestiy (BMI 58) was brought to [facility] with a chief complaint of worsening Rt. hip & knee pain in the last few days. She has had chronic pain bilateral hips and knees, more on Rt. side compared to Lt. side. She has been on pain medications ( prescribed at pain clinic) and home physical therapy. However, pain was worsening in the last few weeks with limitation of activity, inability to stand up from chairs or climb stairs and unsteady gait. Pain was relieved with higher dose medication only. At baseline, she reports limited activity, walks with a walker, and sleeps on a recliner. On exam: V/S temp 98.2, pulse rate 76, respiratory rate 20, blood pressure 172/ 82, pulse ox 91-95 on 3 L oxygen. General: Alert, O 3, no acute distress, morbidly obese, neck: supple, no lymphadenopathy, mucosa moist, CVS: S1-S2, RRR. RS: Markedly decreased air entry bilaterally, no obvious wheezing. Abdomen: Obese, NT, ND, bowel sounds present, no obvious rashes. No focal neurological deficit. Examination of joint is limited because patient is in pain and not cooperative Lab: WBC 10.6, hemoglobin 10.1 (baseline 10.7), hematocrit 32.7, MCV 64.5, platelets 227. Normal electrolytes sodium 142, potassium 4.3, bicarbonate 27, BUN 46, serum creatinine 1.5 (baseline 1.2). Alkaline phosphatase 150 (slightly elevated), proBNP 879 X-ray pelvis / right knee: Significantly limited evaluation secondary to patient body habitus. Severe right hip osteoarthritis. Moderately severe left hip osteoarthritis. No definite fracture identified on the pelvic radiographs within the limitation of the examination which is significant. Severe osteoarthritis involving the medial compartment of the right knee. Mild osteoarthritic changes involving the lateral compartment of the right knee. Moderate osteoarthritis involving the patellofemoral compartment. The presence of effusion cannot be assessed on these films. Patient was admitted to general medicine floor for following problem lists; 1. Intractable pain secondary to severe osteoarthritis of right hip & knee: Pain management was continued with po hydromorphone for severe pain, MSIR for moderate pain and Tylenol for mild pain. Ibuprofen and diclofenac were held due to CKD, but patient strongly requested po diclofenac. We continued monitoring kidney function during hospitalization. Physical therapy & Occupational therapy were given. She has impaired gait & transfers and impaired balance. She has a flight of stairs to enter home, so she would benefit from transfer training in [facility]. Orthopedic surgery was consulted for evaluation of severe osteoarthritis. She can consider a cortisone injection of the right hip. This would have to be done under fluoroscopic control for a number of reasons. Patient is not considering cortisone injection at this time. She would follow up Dr. Max as an outpatient. 2. chronic microcytic anemia: Patient has had low MCV in 2014. She denies any chronic blood loss or change in bowel movement. Iron studies showed low iron (24 ), and normal TIBC (467) / ferritin (12.5). Her CKD could be contributory, and the patient needs to follow a primary doctor for further workup for anemia. 3. CKD stage 3: Patient had Cr 1.2 in 2014. Patient's chronic NSAID use and lasix for CHF may contribute to CKD. She needs to follow up a political research scientist for lasix dose. 4. Hypertension: We continued home dose of to lisinopril and verapamil monitoring blood pressure while in the hospital. 5. Diastolic CHF: Last echo showed EF 60% in 2010. She has chronic LE edema. Leg elevation was recommeded and she continued taking po lasix 80 mg by mouth daily. 6. HLD: We conitnued home dose of statin. DVT prophylaxis-heparin subcutaneous. Diet: heart heatlhy diet Code: DNR/I. Allergies: Coded Allergies: Sulfa (Sulfonamide Antibiotics) (UNKNOWN 08/26/16) Disposition Summary Disposition Principal Diagnosis: Intractable pain secondary to severe osteroarthritis on Rt. Hip & Knee Chronic microcytic anemia Additional Diagnosis: CKD stage 3 HTN HLD Diastolic heart failure Discharge Disposition: SNF Discharge Instructions General Discharge Information Code Status: Do Not Resucitate/Intubat Patient's Diet: Heart healthy Patient's Activity: Increase as tolerated Continiue physical therapy for gait, transfers and balance Follow-Up Instructions/Appts: Please follow up a primary doctor after discharge within 1 week Please follow up Dr. Max for Rt.hip glucocorticoid injection as an outpatient Further outpatient workup for anemia is recommended (including colonoscopy) Please continue physical therapy Please avoid NSAIDs for CKD Medications at Discharge Discharge Medications: Stop taking the following medications: Potassium Chloride (Klor-Con) 20 MEQ PDS ORAL EVERY 48 HOURS (Every 2 days) Qty = 60 Ibuprofen (Ibuprofen) 400 MG TABLET ORAL DAILY Qty = 60 Continue taking these medications: Simvastatin (Simvastatin) 40 MG TABLET 1 Tablet ORAL Every night Comments: DID NOT RECIEVE, RECIEVED ATORVASTATIN 07/21/18 AT 18:30 Verapamil (Calan 80 MG Tablet) 80 MG TABLET 1 Tablet ORAL THREE TIMES DAILY Qty = 90 Comments: Last Taken: 07/21/14 Time: 09:30 Furosemide (Lasix) 80 MG TABLET 1 Tablet ORAL DAILY Qty = 30 Comments: Last Taken: 07/21/14 Time: 09:30 Aspirin (Aspi-Cor) 81 MG CTB 1 Tablet ORAL EVERY 72 HOURS (EVERY 3 DAYS) Qty = 30 Comments: DID NOT REVIEVE Lisinopril (Lisinopril) 10 MG TABLET 10 Milligram ORAL TWICE DAILY Qty = 30 Comments: Last Taken: 07/21/14 Time: 09:30 Diclofenac Sodium (Diclofenac Sodium) 75 MG TABLET.DR 1 Tablet ORAL TWICE DAILY Qty = 60 Comments: Last Taken: 08/30/16 Time: 0900AM Morphine Sulfate (Morphine Sulfate) 15 MG TABLET 1 Tablet ORAL 2 x Daily as needed as needed for PAIN Qty = 30 Comments: MSIR GIVEN 08/29/16 @0900AM Acetaminophen With Codeine (Acetaminophen-Cod #3 Tablet) 300 MG-30 MG TABLET 1 Tablet ORAL 0400 Qty = 60 Acetaminophen With Codeine (Acetaminophen-Cod #3 Tablet) 300 MG-30 MG TABLET 0.5 Tablet ORAL TWICE DAILY Comments: NOT GIVEN IN HOSPITAL Start taking the following new medications: Ferrous Sulfate (Ferrous Sulfate) 325 MG (65 MG IRON) TABLET 1 Tablet ORAL DAILY Qty = 30 No Refills Comments: Last Taken: 08/30/16 Time: 1000AM Copies To: EMILIO CHOE,FRED; YOSEPH CHOE,GONZALO; MAXIMO CHOE,MSy CESAR Attending MD Review Statement Documenting Attending: GISELA DINH MD Other Findings: Patient seen and examined at bedside and agree with the discharge plan and hospital course as discussed in the discharge summary. Patient will follow-up with orthopedics as an outpatient for her hip pain. She was offered steroid shot into the hip joint but patient refused. Patient is being discharged to subacute rehabilitation in stable condition. Discussed with patient the care plan.
[2016-08-28 09:03] LABS: ABSOLUTE BASOPHIL COUNT 0 /CUMM (0.0-0.2); ABSOLUTE EOSINOPHIL COUNT 0.3 /CUMM (0.0-0.7); ABSOLUTE GRANULOCYTE CT 7.4 /CUMM (1.4-6.5); ABSOLUTE LYMPH COUNT 1.2 /CUMM (1.2-3.4); ABSOLUTE MONOCYTE COUNT 0.8 /CUMM (0.10-0.60); BASOPHIL % 0.4 % (0.0-2.0); EOSINOPHIL % 2.7 % (0-5); HEMATOCRIT 31.3 % (37-47); MEAN CORPUSCULAR HGB 20.3 PG (27.0-31.0); MEAN CORPUSCULAR HGB CONC 31.4 G/DL (33.0-37.0); MEAN CORPUSCULAR VOLUME 64.7 FL (81.0-99.0); MEAN PLATELET VOLUME 9.1 FL (7.4-10.4); PLATELET COUNT 226 /CUMM (130-400); RBC DISTRIBUTION WIDTH 21.8 % (11.5-14.5); RED BLOOD CELL CT 4.84 /CUMM (4.20-5.40); WHITE BLOOD CELL COUNT 9.8 /CUMM (4.8-10.8)
--- NOTE | 2016-08-28 10:27 | Patient Discharge Instructions ---
Discharge Instructions General Discharge Information You were seen/treated for: Intractable pain secondary to severe osteroarthritis on Rt. Hip & Knee Chronic microcytic anemia CKD stage 3 HTN HLD Diastolic heart failure Special Instructions: Please follow up with a primary doctor after discharge within 1 week Please follow up Dr. Wu for Rt. hip glucocorticoid injection as an out patient Further outpatient workup for anemia is recommended Please continue physical therapy Please avoid NSAIDs for CKD Diet Continue normal diet: Yes Recommended Diet: Heart Healthy Activity Full Activity/No Limits: Yes Activity Self Limited: No Activity Limited to: Walking with Assistance Other activity limits: Please continue physical therapy for osteoarthritis Acute Coronary Syndrome Inclusion Criteria At DC or during hospital stay patient has or had the following: ACS DIAGNOSIS No Discharge Core Measures Meds if any: Prescribed or Continued at Discharge Meds if any: NOT Prescribed or Continued at Discharge Congestive Heart Failure Inclusion Criteria At DC or during hospital stay patient has or had the following: CHF DIAGNOSIS Yes Discharge Core Measures Meds if any: Prescribed or Continued at Discharge KOBE/ARB for EF <40% Yes Meds if any: NOT Prescribed or Continued at Discharge Cerebrovascular accident Inclusion Criteria At DC or during hospital stay patient has or had the following: CVA/TIA Diagnosis No Discharge Core Measures Meds if any: Prescribed or Continued at Discharge Meds if any: NOT Prescribed or Continued at Discharge Venous thromboembolism Inclusion Criteria VTE Diagnosis No VTE Type NONE VTE Confirmed by (Test) NONE Discharge Core Measures - Per Current guidelines, there needs to be overlap - treatment for the first 5 days of Warfarin therapy. - If discharged on Warfarin prior to 5 days of - overlap therapy, the patient will need to be - assessed for post discharge needs including - *Post discharge parental anticoagulation - *Warfarin and/or parental anticoagulation education - *Follow up date to check INR post discharge At least 5 days overlap therapy as Inpatient No Meds if any: Prescribed or Continued at Discharge Note: Overlap Therapy is Warfarin and Anticoagulant Meds if any: NOT Prescribed or Continued at Discharge
[2016-08-28 15:54] VITALS: BP 122/70
--- NOTE | 2016-08-28 18:58 | NUR ---
Referral received this am via electronic order management specialist. This patient is a 71 year old female, admitted to the hospital on 08/26/16 for intractable pain. Reason for referral was "Help with Living Will". Met with patient this afternoon. She was alert and oriented; pleasant and engaged in interview. When I stated my reason for visit, she confirmed that was her request, and was able to articulate what a Living Will was. Living Will and Appointment of Healthcare Starchmaker executed and witnessed by myself and RN. Please call if other social work needs arise.
[2016-08-29 00:42] VITALS: BP 100/60
--- NOTE | 2016-08-29 05:34 | PN- Housestaff ---
AYANA ROJO 08/29/16 0534: Subjective Follow-up For: 1. hip pain, leg pain, Subjective: She was afebrile overnight, and vitals were stable. Sleeps on a recliner only. Pain is adequately controlled w/ MSIR, Dilaudid, Diclofenac. Review of Systems Constitutional: Reports: see HPI. Objective Last 24 Hrs of Vital Signs/I&O Vital Signs Date Time Temp Pulse Resp B/P Pulse O2 O2 Flow FiO2 Ox Delivery Rate 08/29 0042 97.2 60 20 100/60 94 Nasal 3.0L Cannula 08/29 0000 Nasal 3.0L Cannula 08/28 2230 67 118/68 08/28 1600 96 Nasal 3.0L Cannula 08/28 1554 98.5 58 20 122/70 96 Nasal 3.0L Cannula 08/28 1007 Nasal 3.0L Cannula 08/28 0826 98.7 58 20 125/78 98 Nasal 3.0L Cannula 08/28 0813 70 128/78 08/28 0800 95 Nasal 3.0L Cannula Intake & Output 08/29 0800 08/29 0000 08/28 1600 Intake Total 750 900 Output Total 725 300 Balance 25 600 Intake, IV 0 Intake, Oral 750 900 Number 0 Bowel Movements Output, Urine 725 300 Physical Exam General Appearance: No Acute Distress Other Physical Findings: General Exam: AAOx3, No acute distress, Skin: No rashes, no breakdown HEENT: PERRLA, EOMI Neck: Supple, No JVD No cervical lymphadenopathy CVS: Reg Rate, Normal S1,S2, No MGR Resp: Normal air entry, no ronchi/rales Abdomen: Soft, No tenderness, Normal Bowel Sounds Neuro: Normal Speech, Strength 5/5 b/l x 4 extremities, Sensation intact, CN III -XII NL, Reflexes 2+ Extremities: No cyanosis, pedal edema 2+, serous discharge in the left leg. Current Medications: Current Medications Sig/Dior Start time Last Medication Dose Route Stop Time Status Admin Acetaminophen 650 MG Q4P PRN 08/26 2044 AC PO Aspirin 81 MG DAILY 08/27 1000 AC 08/27 PO 1442 Atorvastatin Calcium 20 MG 1700 08/27 1700 AC 08/28 PO 1610 Diclofenac Sodium 75 MG BID 08/27 2200 AC 08/28 PO 2231 Furosemide 80 MG DAILY 08/27 1000 AC 08/28 PO 0813 Heparin Sodium 5,000 UNIT Q8 08/26 (Porcine) SC 2230 Hydromorphone HCl 2 MG Q4P PRN 08/26 PO 224 Lisinopril 10 MG BID 08/26 PO 223 Morphine Sulfate 15 MG BID PRN 08/26 PO 204 Verapamil HCl 80 MG TID 08/26 PO 2230 Last 24 Hrs of Lab/Refugio Results Last 24 Hrs of Labs/Mics: Laboratory Tests 08/28/16 0650: Anion Gap 14, Estimated GFR 41 L, BUN/Creatinine Ratio 33.8 H, Iron 39, TIBC 444, Ferritin 13.3, CBC w Diff NO MAN DIFF REQ, RBC 4.84, MCV 64.7 L, MCH 20.3 L, RDW 21.8 H, MPV 9.1, Gran % 76.0 H, Lymphocytes % 12.7 L, Monocytes % 8.2, Eosinophils % 2.7, Basophils % 0.4, Absolute Granulocytes 7.4 H, Absolute Lymphocytes 1.2, Absolute Monocytes 0.8 H, Absolute Eosinophils 0.3, Absolute Basophils 0, PUBS MCHC 31.4 L Assessment/Plan Assessment: Ms Yanez is a past medical history of CHF, bilateral knee osteoarthritis, obstructive sleep apnea, COPD (3 L home oxygen), hypertension who was brought to [facility] for management of worsening right hip knee and thigh pain in the last few days before admission. Admission diagnosis: #1 osteoarthritis Below is the problem list and plan: #1 right, hip, knee pain-likely due to osteoarthritis. Pain management with by mouth hydromorphone, MSIR and Tylenol. Avoid NSAIDs till kidney function normalizes. Start celecoxib instead. Pt is reluctant to change medication at this time. Sr Cr 1.4. Deferred the decision to orthopedics, and if any intervention is required at this time. Warm or cool compress, alternate pain control. Physical therapy evaluation recommends short-term rehabilitation. Occupational therapy evaluation. Leg elevation for bilateral leg swellings. #2 anemia-likely anemia of chronic disease. Low MCV. Normal hemoglobin, low iron, high TIBC, low ferritin. Decreased MCH and elevated RDW. Indicates iron deficiency anemia. Start on ferrous sulphate time daily. Check Guiac. #2 hypertension-continue to monitor blood pressure while in the hospital. Continue lisinopril and verapamil. #3 history of CHF-continue lasix 80 mg by mouth daily. Lower extremity edema likely dependent. No cellulitis. #4 DVT prophylaxis-heparin subcutaneous. Problem List: 1. Chronic leg pain 2. Intractable pain Pain Ratin Pain Location: left hip, left thigh Pain Goal: Pain 4 or less Pain Plan: msir, dilaudid, diclofenac. Tomorrow's Labs & Rationales: bep- to monitor sr creatinine Consulting Request: Consulting Specialty: Orthopedics Reason for Consult: Severe osteoarthritis, evaluation for surgery GISELA DINH 09/06/16 1104: Attending MD Review Statement Attending Statement Attending MD Statement: examined this patient, discuss w/resident/PA/SYSTEM SAFETY MANAGER, agreed w/resident/PA/SYSTEM SAFETY MANAGER, reviewed EMR data (avail), discussed with nursing Attending Assessment/Plan: Pt seen and examined at bedside. d/w pt the care plan. Pt is planned for dc to [facility] tomorrow am. Agree with ther resident documentation and assessment and plan. No overnight events or issues.
[2016-08-29 08:53] VITALS: BP 110/64
[2016-08-29] MEDS ORDERED: FERROUS SULFAT325 M3 PO (09:45)
--- NOTE | 2016-08-29 12:36 | Cons- Orthopedic ---
General Information and HPI Consulting Request Date of Consult: 08/29/16 Requested By: FRED JHAVERI MD Reason for Consult: Right hip pain Source of Information: patient Exam Limitations: no limitations History of Present Illness: Patient is a 71-year-old woman with a fairly long history of gradually worsening joint pain. Her primary complaint today is right hip, buttock and knee pain. No injury. She states that she was gradually getting more pain and having more difficulty getting up from low chairs at home. Due to the pain she was seen in the emergency room for further evaluation and assessment of her intractable pain. She has taking anti-inflammatory medications for her pain. She states she was on diclofenac. She describes some occasional giving way sensation of the right lower extremity. She's had swelling but this is a bilateral problem. She has occasional left knee pain especially if she stops taking the medications for her arthritis Allergies/Medications Allergies: Coded Allergies: Sulfa (Sulfonamide Antibiotics) (UNKNOWN 08/26/16) Home Med List: Acetaminophen With Codeine (Acetaminophen-Cod #3 Tablet) 300 MG-30 MG TABLET 1 TAB PO 0400 PAIN (Reported) Acetaminophen With Codeine (Acetaminophen-Cod #3 Tablet) 300 MG-30 MG TABLET 0.5 TAB PO BID PAIN (Reported) Aspirin (Aspi-Cor) 81 MG CTB 1 TAB PO Q72 HEART HEALTH (Reported) Diclofenac Sodium 75 MG TABLET.DR 1 TAB PO BID PAIN (Reported) Furosemide (Lasix) 80 MG TABLET 1 TAB PO DAILY CHF (Reported) Ibuprofen 400 MG TABLET 2 TAB PO DAILY PAIN (Reported) Lisinopril 10 MG TABLET 10 MG PO BID HYPERTENSION Morphine Sulfate 15 MG TABLET 1 TAB PO BIDP PRN PAIN (Reported) Potassium Chloride (Klor-Con) 20 MEQ PDS 1 TAB PO Q48 SUPPLEMENT (Reported) Simvastatin 40 MG TABLET 1 TAB PO QPM CHOLESTEROL (Reported) Verapamil (Calan 80 MG Tablet) 80 MG TABLET 1 TAB PO TID BLOOD PRESSURE ( Reported) Past History Medical History Neurological: NONE EENT: NONE Cardiovascular: CHF, hypertension, hyperlipidemia Respiratory: emphysema Gastrointestinal: NONE Hepatic: NONE Renal: NONE Musculoskeletal: chronic leg pain Psychiatric: NONE Endocrine: NONE Blood Disorders: NONE Cancer(s): NONE Other Medical Hx: Cellulitis Surgical History Pertinent Surgical History: non-contributory Family History Relations & Conditions If Any: BROTHER FH: diabetes mellitus MOTHER FH: diabetes mellitus Psychosocial History Where Do You Live? Home Services at Home: Nursing Smoking Status: Former Smoker ETOH Use: denies use Illicit Drug Use: denies illicit drug use Exam & Diagnostic Data Vital Signs and I&O Vital Signs Date Time Temp Pulse Resp B/P Pulse O2 O2 Flow FiO2 Ox Delivery Rate 08/29 0853 97.9 63 20 110/64 99 08/29 0800 94 Nasal 3.0L Cannula 08/29 0042 97.2 60 20 100/60 94 Nasal 3.0L Cannula 08/29 0000 Nasal 3.0L Cannula 08/28 2230 67 118/68 08/28 1600 96 Nasal 3.0L Cannula 08/28 1554 98.5 58 20 122/70 96 Nasal 3.0L Cannula Intake & Output 08/29 1600 08/29 0800 08/29 0000 08/28 1600 08/28 0800 08/28 0000 Intake Total 750 900 300 600 Output Total 300 725 300 800 600 Balance -300 25 600 -500 0 Intake, IV 0 Intake, Oral 750 900 300 600 Number 0 Bowel Movements Output, Urine 300 725 300 800 600 Patient 340 lb Weight Physical Exam: Examination revealed patient sitting in chair comfortably. She answers questions appropriately. Examination of the right lower extremity reveals diffuse chronic edema. There is tenderness along the medial and lateral joint line of the right knee. No definite effusion. Internal rotation of the right hip seem to reproduce her symptoms. There did not appear to be any asymmetric motor findings. She was able to fully extend the knee and flex to about 110. Imaging Results: I did review x-rays. She has significant osteoarthritis of knee and hip. Assessment/Plan Assessment/Plan Right hip osteoarthritis/knee osteoarthritis-i discussed findings today with the patient. I also discussed options for treatment. Patient was satisfied with continuing the arthritis medication and physical therapy. I think this is reasonable as long she continues to improve. She can consider a cortisone injection of the right hip. This would have to be done under fluoroscopic control for a number of reasons. Patient is not considering cortisone injection at this time. Follow-up can be done as an outpatient. Continue with plan of rehabilitation placement and continuing increase in activity levels as tolerated Consult Acknowledgment - Thank you for your consult request. Attending MD Review Statement Attending Statement Attending MD Statement: examined this patient, reviewed images
[2016-08-29 15:39] VITALS: BP 120/40
--- NOTE | 2016-08-29 16:26 | PN- Att Addend ---
Attending MD Review Statement Attending Statement Attending MD Statement: examined this patient, discuss w/resident/PA/PIPELINE SUPERINTENDENT, agreed w/resident/PA/PIPELINE SUPERINTENDENT, reviewed EMR data (avail), discussed w/case mgmt Attending Assessment/Plan: Pt seen and examined at bedside. d/w pt the care plan. Pt is planned for dc to [facility] tomorrow am. Agree with ther resident documentation and assessment and plan. No overnight events or issues.
[2016-08-29 23:58] VITALS: BP 106/58
--- NOTE | 2016-08-30 05:47 | PN- Housestaff ---
Subjective Follow-up For: 1. hip, thing, and knee osteoarthritis Subjective: She was comfortable this morning. Did not have any complaints. Low-grade fever was noted last night Tm 99.3, vitals were stable. Currently on 3 L oxygen with oxygen saturation in the range of 92-93%. Plan to discharge her to a short-term rehabilitation for continuation of physical therapy. Review of Systems Constitutional: Reports: see HPI. Objective Last 24 Hrs of Vital Signs/I&O Vital Signs Date Time Temp Pulse Resp B/P Pulse O2 O2 Flow FiO2 Ox Delivery Rate 08/30 0000 Nasal 3.0L Cannula 08/29 2358 99.3 54 20 106/58 92 Nasal 3.0L Cannula 08/29 2151 57 110/70 08/29 1600 92 Nasal 3.0L Cannula 08/29 1539 97.3 59 20 120/40 92 08/29 0853 97.9 63 20 110/64 99 08/29 0800 94 Nasal 3.0L Cannula Intake & Output 08/30 0800 08/30 0000 08/29 1600 Intake Total 600 900 Output Total 650 500 Balance -50 400 Intake, IV 0 Intake, Oral 600 900 Output, Urine 650 500 Patient 340 lb Weight Physical Exam General Appearance: No Acute Distress Other Physical Findings: General Exam: AAOx3, No acute distress, Skin: No rashes, no breakdown HEENT: PERRLA, EOMI Neck: Supple, No JVD No cervical lymphadenopathy CVS: Reg Rate, Normal S1,S2, No MGR Resp: Normal air entry, no ronchi/rales Abdomen: Soft, No tenderness, Normal Bowel Sounds Neuro: Normal Speech, Strength 5/5 b/l x 4 extremities, Sensation intact, CN III -XII NL, Reflexes 2+ Extremities: No cyanosis, pedal edema +, serous discharge on legs. No evidenc of any infection. Current Medications: Current Medications Sig/Dior Start time Last Medication Dose Route Stop Time Status Admin Acetaminophen 650 MG Q4P PRN 08/26 204 AC PO Aspirin 81 MG DAILY 08/27 1000 AC 08/27 PO 1442 Atorvastatin Calcium 20 MG 1700 08/27 1700 AC 08/29 PO 1729 Diclofenac Sodium 75 MG BID 08/27 2200 AC 08/29 PO 2145 Diphenhydramine HCl 25 MG ONCE ONE 08/30 0300 DC 08/30 PO 08/30 0301 0346 Diphenhydramine HCl 25 MG ONCE ONE 08/29 1745 DC 08/29 PO 08/29 1746 1804 Docusate Sodium 100 MG DAILY PRN 08/29 0900 AC PO Ferrous Sulfate 325 MG DAILY 08/29 1000 AC 08/29 PO 1201 Furosemide 80 MG DAILY 08/27 1000 AC 08/29 PO 1012 Heparin Sodium 5,000 UNIT Q8 08/26 2199 AC 08/29 (Porcine) SC 215 Hydromorphone HCl 2 MG Q4P PRN 08/26 2044 AC 08/30 PO 0225 Lisinopril 10 MG BID 08/26 2199 AC 08/29 PO 2151 Morphine Sulfate 15 MG BID PRN 08/26 2044 AC 08/29 PO 215 Senna/Docusate Sodium 1 TAB BID PRN 08/29 899 AC PO Verapamil HCl 80 MG TID 08/26 2199 AC 08/29 PO 2144 Last 24 Hrs of Lab/Refugio Results Last 24 Hrs of Labs/Mics: Laboratory Tests 08/29/16 0845: Anion Gap 13, Estimated GFR 37 L, BUN/Creatinine Ratio 40.7 H Assessment/Plan Assessment: Ms Yanez is a past medical history of CHF, bilateral knee osteoarthritis, obstructive sleep apnea, COPD (3 L home oxygen), hypertension who was brought to [facility] for management of worsening right hip knee and thigh pain in the last few days before admission. Admission diagnosis: #1 osteoarthritis Below is the problem list and plan: #1 right, hip, knee pain-likely due to osteoarthritis. Pain management with by mouth hydromorphone, MSIR and Tylenol. Avoid NSAIDs till kidney function normalizes. Start celecoxib instead. Pt is reluctant to change medication at this time. Leg elevation for bilateral leg swellings. Physical therapy. STR this pm. #2 anemia-likely anemia of chronic disease. Low MCV. Normal hemoglobin, low iron, high TIBC, low ferritin. Decreased MCH and elevated RDW. Indicates iron deficiency anemia. Start on ferrous sulphate time daily. No history of colonoscopy done in the past. Gives a history of hemorrhoids. Not keen in gettting a colonscopy done. #2 hypertension-continue to monitor blood pressure while in the hospital. Continue lisinopril and verapamil. #3 history of CHF-continue lasix 80 mg by mouth daily. Lower extremity edema likely dependent. No cellulitis. #4 DVT prophylaxis-heparin subcutaneous. Problem List: 1. Chronic leg pain 2. Arthritis Pain Ratin Pain Location: left knee, left hip . Pain Goal: Pain 4 or less Pain Plan: msir, diclofenac. Tomorrow's Labs & Rationales: no labs necessary Consulting Request: Consulting Specialty: Orthopedics Consulting Physician: Dr. Max Reason for Consult: Severe osteoarthritis, evaluation for surgery
[2016-08-30 08:36] VITALS: BP 110/68
[2016-08-30] MEDS ORDERED: ALBUTEROL2.5 MG/3 M INH/SOL (09:56)
[2016-08-30] MEDS ORDERED: IPRATROPIU0.2 MG/1 M INH/SOL (09:56)
[2016-08-30 12:28] VITALS: BP 118/78
--- NOTE | 2016-08-30 15:44 | PN- Att Addend ---
Attending MD Review Statement Attending Statement Attending MD Statement: examined this patient, discuss w/resident/PA/X RAY SERVICE TECHNICIAN, agreed w/resident/PA/X RAY SERVICE TECHNICIAN, reviewed EMR data (avail), discussed w/case mgmt Attending Assessment/Plan: Patient seen and examined at bedside and agree with the discharge plan and hospital course as discussed in the discharge summary. Patient will follow-up with orthopedics as an outpatient for her hip pain. She was offered steroid shot into the hip joint but patient refused. Patient is being discharged to subacute rehabilitation in stable condition. Discussed with patient the care plan.
== END 2016-08-30 15:16 | DRG 554 ==
LOC: ENRESERVTM → CANRESERV → ENRESERVDT → ERH 14:17 → ENPENDDIS 16:38 → ERHI 16:38 → 2NB 16:38
PROVIDERS: Internal Medicine Endocrinology, Diabetes & Metabolism; Physician Assistant Medical; Student in an Organized Health Care Education/Training Program; ADMIT Internal Medicine
DX: M16.11 Unilateral primary osteoarthritis, right hip (principal); I13.0 Hypertensive heart and chronic kidney disease with heart failure and stage 1 through stage 4 chronic kidney disease, or unspecified chronic kidney disease; I50.32 Chronic diastolic (congestive) heart failure; N18.3 Chronic kidney disease, stage 3 (moderate); Z68.43 Body mass index [BMI] 50.0-59.9, adult; E66.01 Morbid (severe) obesity due to excess calories; E78.5 Hyperlipidemia, unspecified; Z87.891 Personal history of nicotine dependence; D50.9 Iron deficiency anemia, unspecified
CPT/HCPCS: 36415; 72170; 73562-RT; 82436; 97110-GO; 97116-GO; 97161-GP; 97165-GO; 97530-GO; J1644; J3490